=== PATIENT | male | born 1960 | race Caucasian/White ===

== ENCOUNTER 2024-04-13 14:27 | Day surgery (SDC) | payer MEDICARE ==
[2024-04-13] MEDS ORDERED: Sodium Chloride 0.9(Preservative Free) 10 ML IJ ONE (14:28)
[2024-04-13] MEDS ORDERED: Decadron 4 MG INJ IV ONE (14:28)
[2024-04-13] MEDS ORDERED: XYLOCAINE-MPF 1% 5ML SDV IJ ONE (14:28)
[2024-04-13] MEDS ORDERED: Lactated Ringers 1,000 ML IV ONE (16:23)
--- NOTE | 2024-04-13 16:54 | XRAY ---
Indication: Cervical LAWRENCE. Intraoperative fluoroscopy provided for 37 seconds. Single digital spot image submitted for interpretation demonstrates posterior needle tip projecting posterior to cervical thoracic junction. Small amount of contrast injected for needle tip placement. Correlate with intraoperative findings/report.
--- NOTE | 2024-04-14 10:34 | XRAY ---
37 seconds of fluoroscopy was used in surgery for a cervical LAWRENCE.
== END 2024-04-13 16:50 | disposition home or self-care (01) ==
LOC: SDC-PAIN 14:27
PROVIDERS: ATTEND Psychiatry & Neurology Pain Medicine
DX: M54.12 Radiculopathy, cervical region (principal)
CPT/HCPCS: 62321; 72040; 77003; J1100; Q9966